=== PATIENT | male | born 1980 | race Caucasian/White ===

== ENCOUNTER 2018-11-10 17:18 | Emergency (ER) | payer OTHER ==
[2018-11-10] MEDS ORDERED: Adacel (T-DAP) 0.5 ML SYRINGE ONE (18:13)
[2018-11-10] MEDS ORDERED: Ciprofloxacin 500 MG TAB ONE (18:13)
[2018-11-10] MEDS ORDERED: Triple Antibiotic Oint 1 GM Packet ONE (18:27)
[2018-11-10] MEDS ORDERED: Clindamycin 150 MG CAP PO SCH (18:30)
[2018-11-10] MEDS ORDERED: Clindamycin 150 MG CAP ONE (18:41)
== END 2018-11-10 18:40 | disposition home or self-care (01) ==
LOC: ERS 17:18
DX: S61.431A Puncture wound without foreign body of right hand, initial encounter (principal); F41.9 Anxiety disorder, unspecified; F32.9 Major depressive disorder, single episode, unspecified; F17.210 Nicotine dependence, cigarettes, uncomplicated; Z79.899 Other long term (current) drug therapy; W56.51XA Bitten by other fish, initial encounter
CPT/HCPCS: 90471; 90715